=== PATIENT | male | born 1950 | race Caucasian/White ===

== ENCOUNTER → 2017-01-01 | Outpatient (CLI) | payer OTHER ==
--- NOTE | 2017-01-01 16:06 | DIAGNOSTIC IMAGING REPORT ---
Groin ultrasound EXTREMITY NONVASCULAR LIMITED CLINICAL HISTORY: * Adenopathy TECHNIQUE: Ultrasound COMPARISON STUDY: 07/01/2016 FINDINGS: Similar study compared to the prior exam. Maximum linear dimension has diminished from 2.8 to 2.1 cm. Several small left groin nodes considered to be benign by size criteria. All are less than 1 cm. IMPRESSION: Improved inguinal adenopathy with maximum dimension of the right groin nodes diminished from 2.8 to 2.1 cm. No evidence for new or progressive adenopathy. Electronically signed by: Dayron Powers M.D. 01/01/2017 4:04 PM Dictated Date/Time: 01/01/2017 4:02 PM
--- NOTE | 2017-01-08 10:44 | CODING QUERY MEDICAL NECESSITY ---
CQSUPPORTING DIAGNOSIS NEEDED A supporting diagnosis is required for the test/procedure performed on this patient in order for us to be reimbursed by the patient's insurance. Please provide a supporting diagnosis for the following test/procedure listed below next to the test name along with your signature. *If there is no additional diagnosis for this patient that would support the following test/procedure please document that below next to the test/procedure. Test(s)/Procedure(s) that require a supporting diagnosis: DOS 01/01/17 NON-VASCULAR EXTREMITY ULTRASOUND Provider Signature: Date: Thank you Silvana Hagen [facility] Information Management Once completed, please kindly fax back to [phone] For questions please call [phone]
== END ==
LOC: C.ULTR 14:50
PROVIDERS: ATTEND Dermatology
DX: Z85.820 Personal history of malignant melanoma of skin (principal); R59.1 Generalized enlarged lymph nodes